=== PATIENT | female | born 1990 | race Caucasian/White ===

== ENCOUNTER → 2017-12-07 09:33 | Outpatient (CLI) | payer OTHER, SELFPAY ==
--- NOTE | 2017-12-07 09:49 | US_ITS ---
STUDY: THYROID ULTRASOUND REASON FOR EXAM: Female, 27 years old. Palpable lump TECHNIQUE: Ultrasound evaluation of the thyroid was performed with real-time and static vale-scale imaging. COMPARISON: None. FINDINGS: RIGHT LOBE: The right lobe of the thyroid gland measures 6.0 x 2.1 x 1.9 cm. There is a heterogeneous echotexture. There is increased vascularity throughout the gland. There is a partially solid 2.1 x 1.5 x 1.9 cm nodule within the inferior pole of the right lobe. There is increased vascularity noted within the nodule as well as microcalcifications. LEFT LOBE: The left lobe of the thyroid gland measures 5.7 x 2.1 x 1.5 cm. There is a heterogeneous echotexture. There is increased vascularity throughout the gland. There is a ill-defined hypoechoic nodular focus within the left lobe of the gland which measures 0.7 x 0.4 x 0.9 cm. ISTHMUS: The isthmus measures 2 mm . US/Thyroid IMPRESSION: Enlarged, hypervascular and heterogenous thyroid gland suggestive of a history of thyroiditis. Partially solid nodule within the right lobe of the gland measuring up to 2.1 cm. Ill-defined 0.9 mm nodularity within the left lobe of the gland. Electronically Signed: Renay Clarke MD at 17:38 EST Tel , Service support ,
[2017-12-07 11:07] LABS: T4 Free Direct 1.23 ng/dL (0.76-1.46); Thyroid Stim Hormone (TSH) 0.56 uIU/mL (0.358-3.74)
== END ==
PROVIDERS: Family Provider Family Medicine; PCP Family Medicine; Visit Provider Family Medicine
DX: E04.1 Nontoxic single thyroid nodule (principal)
CPT/HCPCS: 36415; 76536; 84439; 84443

== ENCOUNTER → 2018-03-11 08:48 | Outpatient (CLI) | payer OTHER, SELFPAY ==
--- NOTE | 2018-03-11 07:30 | FLU_PTH ---
PATIENT: MALIHA CAMEJO LOC: [facility] U#:[id number] AGE/SX: 34/F ROOM: RE03/11/[address]: Dr. Hector Hendrix MD : 1990 BED: DIS: SPEC #: [id number] RECD: 03/11/18 08:44 STATUS: FLORENCE MELVA #: [id number] JAYCE: 03/11/18 07:[address]: Hector Hendrix DEPT: CYTOLOGY RECD BY: Refugio Wade ENTERED: 03/11/18 12:35 SP TYPE: Fluid OTHR DR: Dr. Jarred Cheema MD Tissues: A - Thyroid gland, NOS B - Thyroid gland, NOS Procedures: Pap Stain (control) Special Stain Group II Surgery Specimen Level IV Cell Block Cytospin Fluid Cytology Other HEADER OPERATION: Ultrasound-guided fine needle aspiration right thyroid PRE-OP DIAGNOSIS: Thyroid nodule E04.1 TISSUE SUBMITTED: A ? Right thyroid fluid for cytology (in syringe), B ? Fine needle aspiration right thyroid 12 slides DIAGNOSIS CYTOLOGY A. Fine needle aspiration, right thyroid nodule (cytospin and cell block): Adequate for evaluation. Negative, consistent with benign thyroid tissue. See comment. B. Fine needle aspiration, right thyroid nodule (smears): Adequate for evaluation. Benign, consistent with cystic follicular nodule. AM:alex 03/12/18 COMMENT A. The cell block contains minute fragments of benign thyroid parenchyma and macrophages. A cystic component is likely. CYTOLOGY STUDY Slides are reviewed. CYTOLOGY GROSS A - Received is 1 ml of red cloudy fluid labeled with the patient's name and and designated per the requisition as right thyroid. Submitted for cytology preparation including cell block. B - Received are 12 smears labeled with the patient's name and designated per the requisition as right thyroid. Submitted for staining. 03/11/18 TC:5 CPT: 02105, 71584, 54597
[2018-03-11 08:50] LABS: Cytology, Body Fluid / CSF SEE PATHOLOGY REPORT
== END ==
PROVIDERS: PCP Family Medicine; Visit Provider Surgery
DX: E04.1 Nontoxic single thyroid nodule (principal)
CPT/HCPCS: 88108; 88161; 88305; 88313

== ENCOUNTER → 2019-08-29 11:19 | Outpatient (CLI) | payer OTHER, SELFPAY ==
--- NOTE | 2019-08-29 11:32 | US_ITS ---
STUDY: ABDOMINAL ULTRASOUND REASON FOR EXAM: Female, 28 years old. Right upper quadrant pain TECHNIQUE: Transabdominal ultrasound was performed with real-time and static vale scale imaging. TECHNICAL QUALITY: Adequate. COMPARISON: None. FINDINGS: Liver: The liver measures 12 cm. There is normal echogenicity of the liver. The bile ducts are within normal limits. There is hepatic color flow. The direction of portal flow is hepatopetal. There is no demonstrated mass lesion. Gallbladder: Normal distended gallbladder. The gallbladder wall measures 2.0 mm. There is a negative sonographic Smith's sign. There is no pericholecystic fluid. There are no gallstones. Common Bile Duct (C.B.D.): The common bile duct measures 3.2 mm. Pancreas: There is normal echogenicity of the visualized pancreas. There is no demonstrated pancreatic mass or cyst. Spleen: Normal size of the spleen. The spleen measures 8.4 x 3.4 x 3.5 cm. Right Kidney: Normal size of the right kidney. The right kidney measures 10.7 x 5.3 x 4.1 cm. Normal renal cortex. The right cortex measures 1.3 cm. There is no demonstrated renal mass or cyst. There is no right hydronephrosis. Left Kidney: Normal size of the left kidney. The left kidney measures 10.5 x 4.9 x 4.6 cm. Normal renal cortex. The left cortex measures 1.7 cm. There is no demonstrated renal mass or cyst. There is no left hydronephrosis. Aorta: Normal caliber measuring up to 1.9 cm in axial dimension. I.V.C.: The IVC is patent. There is no ascites. US/Abdomen Complete IMPRESSION: Normal abdominal ultrasound examination. Electronically Signed: Jorge Quijano MD ([place]) at 14:27 EST , Service support ,
[2019-08-29 12:04] LABS: Absolute Lymphocyte Count 2.28 X10^3/uL (0.83-4.51); Absolute Neutrophil Count 2.6 X10^3/uL (2.0-7.7); Basophil# 0.02 X10^3/uL; Basophil% 0.4 % (0-1); Eosinophil# 0.15 X10^3/uL; Eosinophils% 2.8 % (0-5); Hematocrit 38.1 % (37-47); Lymphocyte # 2.28 X10^3/ul (4.0); Lymphocyte % 42.4 % (19-41); Mean Corp Hgb Conc 34.1 g/dL (32-36); Mean Corpuscular Hgb 30.8 pg (27.0-32.0); Mean Corpuscular Volume 90.3 fL (81-99); Mean Platelet Vol. 11.5 fl (6.2-12.0); Monocyte# 0.35 X10^3/uL; Monocyte% 6.5 % (0-10); NRBC Flagged by Analyzer 0 % (0-5); Neutrophil # 2.57 X10^3/uL (2.7-7.7); Neutrophil % 47.7 % (47-70); Platelet Count 216 K/mm3 (150-450); RBC Distribution Width CV 12.4 % (11.6-14.6); RBC Distribution Width SD 40.2 fl (35.1-43.9); Red Blood Count 4.22 M/mm3 (4.2-5.4); White Blood Count 5.4 K/mm3 (4.4-11.0)
[2019-08-29 12:12] LABS: ALB/GLOB Ratio 1.2 RATIO (0.9-2.4); AST(SGOT) 12 U/L (15-37); Alanine Aminotransfer ALT/SGPT 16 U/L (13-56); Albumin, Serum 3.9 g/dL (3.2-5.0); Alkaline Phosphatase 41 U/L (45-117); Anion Gap 8 (5-15); BUN 9 mg/dL (7-18); BUN/Creat Ratio 12.5 RATIO (10-20); Calcium,Total 8.7 mg/dL (8.5-10.1); Chloride 109 mmol/L (98-107); Creatinine, Serum 0.72 mg/dL (0.55-1.02); EST Glomerular Filtration Rate 103 mL/min (>60); Est Glom Filt Rate - Afr Amer 125 mL/min (>60); Globulin 3.3 g/dL (2.2-4.2); Glucose 93 mg/dL (74-106); Potassium 3.8 mmol/L (3.5-5.1); Protein, Total 7.2 g/dL (6.4-8.2); Sodium Level 143 mmol/L (136-145)
== END ==
PROVIDERS: Family Provider Family Medicine; PCP Family Medicine; Referring Provider Family Medicine; Visit Provider Family Medicine
DX: R10.11 Right upper quadrant pain (principal)
CPT/HCPCS: 36415; 76700; 80053; 85025

== ENCOUNTER → 2020-08-23 16:40 | Outpatient (CLI) | payer SELFPAY | PROVIDERS: PCP Family Medicine; Referring Provider Family Medicine; Visit Provider Family Medicine | DX: Z11.59 Encounter for screening for other viral diseases (principal) | CPT/HCPCS: 87635; C9803; U0003 ==

== ENCOUNTER → 2020-11-29 16:24 | Outpatient (CLI) | payer OTHER, SELFPAY ==
[2020-11-29 14:34] VITALS: BMI 22.8
[2020-12-02 21:07] LABS: HPV Reflexed? NOT INDICATED
== END ==
PROVIDERS: PCP Family Medicine; Referring Provider Nurse Practitioner Women's Health; Visit Provider Nurse Practitioner Women's Health
DX: Z12.4 Encounter for screening for malignant neoplasm of cervix (principal)
CPT/HCPCS: 88175; G0145

== ENCOUNTER → 2022-07-30 | Outpatient (CLI) | payer OTHER, SELFPAY ==
[2022-07-30 15:41] LABS: Absolute Neutrophil Count 2.4 X10^3/uL (2.0-7.7); Basophil# 0.03 X10^3/uL; Basophil% 0.6 % (0-1); Eosinophil# 0.18 X10^3/uL; Eosinophils% 3.6 % (0-5); Hematocrit 39.2 % (37-47); Hemoglobin 13.2 g/dL (12.0-15.0); Lymphocyte % 38.1 % (19-41); Mean Corp Hgb Conc 33.7 g/dL (32-36); Mean Corpuscular Hgb 31.1 pg (27.0-32.0); Mean Corpuscular Volume 92.2 fL (81-99); Mean Platelet Vol. 11.6 fl (6.2-12.0); Monocyte# 0.42 X10^3/uL; Monocyte% 8.4 % (0-10); NRBC Flagged by Analyzer 0 % (0-5); Neutrophil # 2.44 X10^3/uL (2.7-7.7); Neutrophil % 48.9 % (47-70); Platelet Count 242 K/mm3 (150-450); RBC Distribution Width CV 12.3 % (11.6-14.6); RBC Distribution Width SD 41.4 fl (35.1-43.9); Red Blood Count 4.25 M/mm3 (4.2-5.4)
[2022-07-30 15:49] LABS: Mucous, Urine 0 SEEN /hpf (<or=2+); Red Blood Cells-Urine 0 SEEN /hpf (0-5)
[2022-07-30 16:48] LABS: ALB/GLOB Ratio 1.1 RATIO (0.9-2.4); AST(SGOT) 14 U/L (15-37); Alanine Aminotransfer ALT/SGPT 21 U/L (13-56); Albumin, Serum 3.7 g/dL (3.2-5.0); Alkaline Phosphatase 40 U/L (45-117); Anion Gap 7 (5-15); BUN 8 mg/dL (7-18); BUN/Creat Ratio 9.9 RATIO (10-20); Calcium,Total 9.1 mg/dL (8.5-10.1); Chloride 107 mmol/L (98-107); Creatinine, Serum 0.81 mg/dL (0.55-1.02); EST Glomerular Filtration Rate 88 mL/min (>60); Est Glom Filt Rate - Afr Amer 107 mL/min (>60); Globulin 3.4 g/dL (2.2-4.2); Glucose 92 mg/dL (74-106); Potassium 3.8 mmol/L (3.5-5.1); Protein, Total 7.1 g/dL (6.4-8.2); Sodium Level 141 mmol/L (136-145)
[2022-07-30 16:50] LABS: Color, Urine Amber (Yellow); Glucose, Dipstick Normal (Normal); Ketone-Dipstick Negative (Negative); Leukocyte Esterase-Dipstick 25 /ul (Negative); Nitrite-Dipstick Positive (Negative); Occult Blood-Urine Negative /ul (Negative); Protein-Dipstick Negative (Negative); Specific Gravity, Urine 1.005 (1.002-1.030); Urine Clarity Clear (Clear); Urine Urobilinogen 8 mg/dl (Normal)
[2022-07-30 16:51] LABS: Urine Bilirubin Dipstick 3 mg/dL (Negative)
[2022-07-30 19:03] LABS: Bacteria 2+ /hpf (None Seen); Squamous Epithelial Cells - UA 0-5 SEEN /hpf (5-10); White Blood Cells 0-5 SEEN /hpf (0-5)
[2022-07-31 13:25] LABS: Chlamydia Trachomatis by PCR Negative (Negative); Neisserai gonorrhoeae by PCR Negative (Negative); Probe Check PASS; Sample Adequacy Control PASS; Specimen Processing Control PASS
== END | disposition home or self-care (01) ==
PROVIDERS: PCP Family Medicine; Referring Provider Family Medicine; Visit Provider Family Medicine
DX: R10.9 Unspecified abdominal pain (principal)
CPT/HCPCS: 36415; 80053; 81001; 85025; 87086; 87491; 87591

== ENCOUNTER 2022-08-01 21:10 | Emergency (ER) | payer OTHER, SELFPAY ==
[2022-08-01 21:10] VITALS: BP 113/47; PULSE 70; RESP 16; TEMP 36.9; O2SAT 96; BMI 22.9
[2022-08-01 21:13] VITALS: BP 113/47; PULSE 70; RESP 16; TEMP 36.9; O2SAT 96
--- NOTE | 2022-08-01 22:02 | CT_ITS ---
STUDY: CT ABDOMEN AND PELVIS WITHOUT CONTRAST REASON FOR EXAM: Female, 31 years old. left flank pain RADIATION DOSAGE (If Supplied By Facility): CTDIvol = ( 6.92 ) mGy, DLP = ( 337.06 ) mGycm TECHNIQUE: Transaxial images were obtained from the dome of the diaphragm to the symphysis pubis without oral contrast, and without intravenous contrast. Sagittal and coronal images were reconstructed. Individualized dose optimization techniques were used for this CT. COMPARISON: None. FINDINGS: The visualized lung bases are unremarkable. The visualized portions of the heart are within normal limits. Normal liver. Normal gallbladder and extrahepatic biliary system. Normal spleen. Normal pancreas. Normal bilateral adrenal glands. Normal right kidney. Normal left kidney. Normal visualized stomach. Normal small intestine. Normal colon. There is non-visualization of the appendix. Normal abdominal aorta. Normal inferior vena cava. Normal retroperitoneum. Normal urinary bladder. Intrauterine device within the uterus. Normal abdominal wall. Normal osseous structures. CT/Abdomen/Pelvis without Cont IMPRESSION: Normal unenhanced CT of the abdomen and pelvis. Electronically Signed: Rudolph Celestin MD at 23:28 EDT ,
--- NOTE | 2022-08-01 22:04 | EDS_ITS ---
HPI History of Present Illness Chief Complaint: Complaint Informant: patient Onset/Context/Timing Onset: Days (10 days) Context: Gradual Onset Narrative Narrative: Patient presents with UTI symptoms that started on the second. She reports urinary frequency and dysuria. She has some slight left flank pain. No fever or chills. She is had nausea but no vomiting. She was initially started on Keflex and on the fifth that was switched to Cipro and Azo. She had blood work and urinalysis obtained on the with urine culture. Urinalysis shows positive nitrites with 2+ bacteria, however urine culture reveals no growth. Patient also had gonorrhea and Chlamydia testing at that time that was negative. Patient presents due to continued symptoms and stating that she is not improvi ng. [facility] Medical History Right thyroid nodule Urinary tract infection Yeast infection Home Medications ciprofloxacin HCl 500 mg tablet 500 mg PO BID 08/01/22 [History Last Taken Unknown] ibuprofen 200 mg tablet (Advil) 400 mg PO Q6H 08/01/22 [History Last Taken Unknown] phenazopyridine 99.5 mg tablet (Azo Urinary Pain Relief) 99.5 mg PO TID 08/01/22 [History Last Taken Unknown] sulfamethoxazole 800 mg-trimethoprim 160 mg tablet (Bactrim DS) 1 tab PO BID #6 tabs 08/01/22 [Rx Last Taken Unknown] Allergy/AdvReac Type Severity Reaction Status Date / Time No Known Allergies Allergy Verified 08/01/22 21:47 Family History Mother Thyroid disorder Aunt Breast cancer Surgical History Hx of swallowed foreign body Social History household members: spouse number of children: 0 current occupational status: employed current occupation: [employer] history of recent travel: No sexually active: Yes Smoking Status: Former smoker second hand exposure: No alcohol intake: current alcohol intake frequency: a few times a month substance use type: does not use caffeine: Yes what type of physical activity do you participate in: none frequency: does not exercise seatbelt use: always do you feel safe at home: Yes additional social history: - Monico [facility]ASH[facility] ED Constitutional Constitutional ED: Denies chills or fever(s) Eyes Eyes: Denies change in vision or discharge from eye(s) ENT ENT ED: Denies discharge from eye(s), rhinorrhea or sore throat Cardiovascular Cardiovascular: Denies chest pain or palpitations Respiratory/Chest Respiratory/Chest: Denies cough or dyspnea Gastrointestinal Gastrointestinal: Reports abdominal pain and nausea; Denies diarrhea or vomiting Genitourinary Genitourinary ED: Reports dysuria and urinary frequency Musculoskeletal Musculoskeletal: Reports back pain; Denies extremity pain Integumentary Denies Abrasions or rash Neurologic Neurologic: Denies headache(s) or weakness Allergic/Immunologic Allergic/Immunologic ED: Denies lip swelling or urticaria EXAM Physical Exam Const Vital Signs: 08/01/22 21:10 08/01/22 21:13 08/01/22 22:30 Temperature 98.5 F 98.5 F 98.8 F Temperature Source Temporal Temporal Oral Pulse Rate 70 70 65 Respiratory Rate 16 16 16 Blood Pressure 113/47 L 113/47 L 119/59 L Blood Pressure Mean 69 69 79 Pulse Ox 96 96 98 Oxygen Delivery Method Room Air Room Air Room Air 08/01/22 23:01 08/01/22 23:13 Temperature 98.8 F 98.8 F Temperature Source Oral Oral Pulse Rate 56 L 56 L Respiratory Rate 18 18 Blood Pressure 105/55 L 105/55 L Blood Pressure Mean 71 71 Pulse Ox 96 98 Oxygen Delivery Method Room Air Room Air Positive well nourished and well developed General Appearance ED: well developed HEENT Reports normocephalic and head/scalp atraumatic Eyes PERRL and EOMs intact bilaterally Neck supple Chest Wall inspection of chest normal and palpation of chest normal Resp normal respiratory effort and clear to auscultation bilaterally Cardio regular rate and regular rhythm GI GI Narrative: Lower abdominal tenderness palpation. No guarding or rebound. Palpation: soft Back/Spine General Back: CVA tenderness left Extremity normal to inspection Neuro oriented x3 and no sensory deficits noted Sensorium / Orientation: alert Motor Exam: strength 5/5 throughout Psych mental status grossly normal Skin no rashes or lesions noted MDM MDM MDM Narrative Medical decision making narrative: Patient given Toradol with small dose of morphine and Zofran for pain. IV fluids ordered. Lab work and urinalysis obtained along with CT flank. Lab Data Attestation: I reviewed the patient's lab results. Labs: Laboratory Results - last 24 hr 08/01/22 08/01/22 08/01/22 22:11 22:11 22:11 WBC 7.1 RBC 4.14 L Hgb 13.2 Hct 38.1 MCV 92.0 MCH 31.9 MCHC 34.6 RDW Std Deviation 41.3 RDW Coeff of Blanco 12.2 Plt Count 243 MPV 11.2 Immature Gran % (Auto) 0.100 Neut % (Auto) 54.5 Lymph % (Auto) 32.8 [place] % (Auto) 8.5 Eos % (Auto) 3.5 Baso % (Auto) 0.6 Absolute Neuts (auto) 3.9 Absolute Lymphs (auto) 2.32 Nucleated RBC % 0 Sodium 141 Potassium 3.8 Chloride 108 H Carbon Dioxide 27.0 Anion Gap 6 BUN 11 Creatinine 0.88 Estim Creat Clear Calc 84.88 Est GFR (MDRD) Af Amer 97 Est GFR (MDRD) Non-Af 80 BUN/Creatinine Ratio 12.5 Glucose 96 Calcium 8.4 L Serum , Qual NEGATIVE Urine Color Urine Clarity Urine pH Ur Specific [place] Urine Protein Urine Glucose (UA) Urine Ketones Urine Occult Blood Urine Nitrite Urine Bilirubin Urine Urobilinogen Ur Leukocyte Esterase Urine RBC Urine WBC Ur Squamous Epith Cells Urine Bacteria Urine Mucus 08/01/22 22:24 WBC RBC Hgb Hct MCV MCH MCHC RDW Std Deviation RDW Coeff of [place] Plt Count MPV Immature Gran % (Auto) Neut % (Auto) Lymph % (Auto) [place] % (Auto) Eos % (Auto) Baso % (Auto) Absolute Neuts (auto) Absolute Lymphs (auto) Nucleated RBC % Sodium Potassium Chloride Carbon Dioxide Anion Gap BUN Creatinine Estim Creat Clear Calc Est GFR (MDRD) Af Amer Est GFR (MDRD) Non-Af BUN/Creatinine Ratio Glucose Calcium Serum , Qual Urine Color [place] Urine Clarity Sl. Cloudy Urine pH 5.0 Ur Specific [place] 1.020 Urine Protein Negative Urine Glucose (UA) Normal Urine Ketones Negative Urine Occult Blood Negative Urine Nitrite Positive H Urine Bilirubin 6 H Urine Urobilinogen 8 H Ur Leukocyte Esterase Negative Urine RBC 0 SEEN Urine WBC 0-5 SEEN Ur Squamous Epith Cells 0-5 SEEN Urine Bacteria 1+ Urine Mucus 0 SEEN Radiography Diagnostic Testing: Clinical Impression(s) from Imaging Studies Abdomen/Pelvis CT 08/01/22 22:02 IMPRESSION: Normal unenhanced CT of the abdomen and pelvis. Electronically Signed: Rudolph Celestin MD at 23:28 EDT , Treatment and Re-Evaluation Narrative: CBC and chemistry studies unremarkable. Renal function is normal. test is negative. Urinalysis continues to show positive nitrites with 1+ bacteria. CT of the abdomen and pelvis is unremarkable. Test results are discussed with patient and at bedside. Urine will be sent for another culture tonight. I will switch her to Bactrim as this is usually first-line for urinary tract infections to see if we can get better response. If this does not improve I did recommend following up with urogynecology for further testing and evaluation. She will be referred to Dr. Ramon. Return instructions provided. Discharge Plan Triage Chief Complaint: Complaint ED Provider: Brandi Suggs Dx/Rx/DC Orders Clinical Impression: Cystitis Instructions: ED Cystitis Female Adult Prescriptions: New sulfamethoxazole-trimethoprim [Bactrim DS] 800-160 mg tablet 1 tab PO BID Qty: 6 0RF No Action Azo Urinary Pain Relief 99.5 mg Tablet 99.5 mg PO TID ciprofloxacin HCl 500 mg Tablet 500 mg PO BID ibuprofen [Advil] 200 mg Tablet 400 mg PO Q6H Primary Care Provider: Sudarshan Cheema Referrals: Sudarshan Cheema MD [Primary Care Provider] - Tarsha Ramon MD [Med Staff - Active Staff] - 1 Week if not improving Disposition Disposition: Home, Self Care
[2022-08-01 22:29] LABS: Mucous, Urine 0 SEEN /hpf (<or=2+); Red Blood Cells-Urine 0 SEEN /hpf (0-5)
[2022-08-01 22:30] VITALS: BP 119/59; PULSE 65; RESP 16; TEMP 37.1; O2SAT 98
[2022-08-01 22:31] LABS: Color, Urine Amber (Yellow); Glucose, Dipstick Normal (Normal); Ketone-Dipstick Negative (Negative); Leukocyte Esterase-Dipstick Negative /ul (Negative); Nitrite-Dipstick Positive (Negative); Occult Blood-Urine Negative /ul (Negative); Protein-Dipstick Negative (Negative); Urine Clarity Sl. Cloudy (Clear); Urine Urobilinogen 8 mg/dl (Normal)
[2022-08-01] MEDS: 0.9% Normal Saline 1,000 ML 150 ML IV (22:31)
[2022-08-01] MEDS: Ondansetron 4 MG/2 ML Vial IV (22:33)
[2022-08-01 22:35] LABS: Absolute Lymphocyte Count 2.32 X10^3/uL (0.83-4.51); Absolute Neutrophil Count 3.9 X10^3/uL (2.0-7.7); Basophil# 0.04 X10^3/uL; Basophil% 0.6 % (0-1); Eosinophil# 0.25 X10^3/uL; Eosinophils% 3.5 % (0-5); Hematocrit 38.1 % (37-47); Hemoglobin 13.2 g/dL (12.0-15.0); Lymphocyte # 2.32 X10^3/ul (0.83-4.51); Lymphocyte % 32.8 % (19-41); Mean Corp Hgb Conc 34.6 g/dL (32-36); Mean Corpuscular Hgb 31.9 pg (27.0-32.0); Mean Platelet Vol. 11.2 fl (6.2-12.0); Monocyte% 8.5 % (0-10); NRBC Flagged by Analyzer 0 % (0-5); Neutrophil # 3.86 X10^3/uL (2.7-7.7); Neutrophil % 54.5 % (47-70); Platelet Count 243 K/mm3 (150-450); RBC Distribution Width CV 12.2 % (11.6-14.6); RBC Distribution Width SD 41.3 fl (35.1-43.9); Red Blood Count 4.14 M/mm3 (4.2-5.4); White Blood Count 7.1 K/mm3 (4.4-11.0)
[2022-08-01 22:37] LABS: Squamous Epithelial Cells - UA 0-5 SEEN /hpf (5-10); Urine Bilirubin Dipstick 6 mg/dL (Negative); White Blood Cells 0-5 SEEN /hpf (0-5)
[2022-08-01 22:38] LABS: Bacteria 1+ /hpf (None Seen)
[2022-08-01] MEDS: Morphine 2 MG/ML Syringe IV (22:38)
[2022-08-01 22:48] LABS: Internal QC Validated? YES +Cl - CLEAR BKGD; Pregnancy, Serum, hCG Quali. NEGATIVE Negative
[2022-08-01 22:50] LABS: Anion Gap 6 (5-15); BUN 11 mg/dL (7-18); BUN/Creat Ratio 12.5 RATIO (10-20); Calcium,Total 8.4 mg/dL (8.5-10.1); Chloride 108 mmol/L (98-107); Creatinine, Serum 0.88 mg/dL (0.55-1.02); EST Glomerular Filtration Rate 80 mL/min (>60); Est Glom Filt Rate - Afr Amer 97 mL/min (>60); Estimated Creatinine Clearance 84.88 ml/min; Glucose 96 mg/dL (74-106); Potassium 3.8 mmol/L (3.5-5.1); Sodium Level 141 mmol/L (136-145)
[2022-08-01 23:01] VITALS: BP 105/55; PULSE 56; RESP 18; TEMP 37.1; O2SAT 96
[2022-08-01] MEDS: Ketorolac 30 MG/ML Syringe IV (23:06)
[2022-08-01 23:13] VITALS: BP 105/55; PULSE 56; RESP 18; TEMP 37.1; O2SAT 98
[2022-08-01 23:37] VITALS: BP 111/56; PULSE 60; RESP 15; O2SAT 95
[2022-08-01] MEDS: Smz/Tmp Ds Tablet 1 TABLET PO (23:46)
== END 2022-08-01 23:57 | disposition home or self-care (01) ==
PROVIDERS: Emergency Provider Emergency Medicine; PCP Family Medicine; Visit Provider Emergency Medicine
DX: N30.90 Cystitis, unspecified without hematuria (principal); R11.0 Nausea; R35.0 Frequency of micturition; R30.0 Dysuria; R10.9 Unspecified abdominal pain; Z87.891 Personal history of nicotine dependence
CPT/HCPCS: 74176; 80048; 81001; 84703; 85025; 87086; 96374; 96375; 99284; J7030; A4216; J2405

== ENCOUNTER → 2024-01-01 | Outpatient (CLI) | payer BC, SELFPAY ==
[2024-01-07 15:08] LABS: HPV APTIMA, High Risk Negative (Negative)
== END | disposition home or self-care (01) ==
PROVIDERS: PCP Family Medicine; Referring Provider Nurse Practitioner Women's Health; Visit Provider Nurse Practitioner Women's Health
DX: Z12.4 Encounter for screening for malignant neoplasm of cervix (principal)
CPT/HCPCS: 87624; 88175; G0145